=== PATIENT | female | born 2000 | race Caucasian/White ===

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

== ENCOUNTER 2022-01-31 05:37 | Inpatient (IN) | payer BC, OTHER ==
[~2022-01-31] VITALS: Ht 160 cm; Wt 86.2 kg
[2022-01-31 06:15] LABS: HEMOGLOBIN 12.3 gm/dl (12.3-15.3); RED BLOOD COUNT 4.17 M/UL (4.00-5.10); WHITE BLOOD COUNT 15.8 K/UL (4.5-11.0)
[2022-01-31] MEDS ORDERED: PEPCID20 MG PO (07:01)
[2022-01-31] MEDS ORDERED: PRENATAL VITAM1 EAC3 PO (07:02)
[2022-01-31] MEDS ORDERED: PERCOCET 5/325 T1 EA PO (10:48)
[2022-01-31] MEDS ORDERED: IBUPROFEN800 MG PO (10:48)
[2022-01-31] MEDS ORDERED: HEMOCYTE324 MG PO (10:48)
[2022-01-31] MEDS ORDERED: COLACE100 MG PO (10:48)
[2022-02-01 03:30] LABS: HEMOGLOBIN 9.2 gm/dl (12.3-15.3)
== END 2022-02-02 18:03 | disposition home or self-care (01) | DRG 788 ==
LOC: OB 05:37
PROVIDERS: ADMIT Obstetrics & Gynecology
PROC: 4A1HXCZ Monitoring of Products of Conception, Cardiac Rate, External Approach (ICD-10-PCS; 2022-01-31)
PROC: 3E0234Z Introduction of Serum, Toxoid and Vaccine into Muscle, Percutaneous Approach (ICD-10-PCS; 2022-01-31)
PROC: 10D00Z1 Extraction of Products of Conception, Low, Open Approach (ICD-10-PCS; principal; 2022-01-31 08:45)
DX: O24.420 Gestational diabetes mellitus in childbirth, diet controlled (principal); O36.63X0 Maternal care for excessive fetal growth, third trimester, not applicable or unspecified; Z3A.38 38 weeks gestation of pregnancy; Z37.0 Single live birth; Z20.822 Contact with and (suspected) exposure to COVID-19; Z82.5 Family history of asthma and other chronic lower respiratory diseases; Z82.49 Family history of ischemic heart disease and other diseases of the circulatory system; Z83.3 Family history of diabetes mellitus; Z90.49 Acquired absence of other specified parts of digestive tract; Z28.310 Unvaccinated for COVID-19; Z23 Encounter for immunization
CPT/HCPCS: 36415; 81001; 82800; 82962; 85014; 85018; 85025; 90471; 90715; C9113; J0690; J1170; J1200; J1885; J2270; J2274; J2370; J2405; J2590; J2795; J3010; J7030; J7120